=== PATIENT | male | born 1995 | race Two or more races ===

== ENCOUNTER 2017-01-14 18:15 | Emergency (ER) | payer OTHER ==
[~2017-01-14] VITALS: Ht 185.4 cm; Wt 107.9 kg
[2017-01-14] MEDS ORDERED: AUGM875T28 PO (20:23)
[2017-01-14] MEDS ORDERED: ADACEL/BOOSTRIX VACCINE (DIPHTH/PERTUSS/ACELL/TETANUS)0.5ML SYR (90715) IM ONE (20:30)
[2017-01-14] MEDS ORDERED: AUGMENTIN 875 MG TAB PO ONE (20:30)
[2017-01-14 20:31] VITALS: BP 136/93
== END 2017-01-14 20:39 | disposition home or self-care (01) ==
LOC: M ED 19:25
DX: S91.331A Puncture wound without foreign body, right foot, initial encounter (principal); X58.XXXA Exposure to other specified factors, initial encounter; Y92.009 Unspecified place in unspecified non-institutional (private) residence as the place of occurrence of the external cause; Y93.89 Activity, other specified; Y99.8 Other external cause status

== ENCOUNTER 2020-01-08 03:27 | Emergency (ER) | payer OTHER, SELFPAY ==
[~2020-01-08] VITALS: Ht 188 cm; Wt 106.8 kg
[~2020-01-08 03:27] MED LIST: AUGM875T28 PO
[2020-01-08] MEDS ORDERED: FLUORESCEIN OPHTH 1 MG STRIP As Ordered ONE (03:58)
[2020-01-08] MEDS ORDERED: FLUORESCEIN OPHTH 1 MG STRIP OD ONE (04:00)
[2020-01-08] MEDS ORDERED: TETRACAINE 0.5% OPHTH SOLN 4ML OD ONE (04:00)
[2020-01-08] MEDS ORDERED: CIPROFLOXACIN 0.3% OPHTH SOLN 2.5ML OU ONE (04:15)
[2020-01-08] MEDS ORDERED: CIPR0.3S6 OU (04:19)
[2020-01-08 04:23] VITALS: BP 125/86
== END 2020-01-08 04:42 | disposition home or self-care (01) ==
LOC: M ED 03:27
DX: H10.33 Unspecified acute conjunctivitis, bilateral (principal)

== ENCOUNTER 2021-04-19 16:58 | Emergency (ER) | payer SELFPAY ==
[~2021-04-19] VITALS: Ht 188 cm; Wt 104.5 kg
[~2021-04-19 16:58] MED LIST changes: +CIPR0.3S6 OU
[2021-04-19 16:59] VITALS: BP 146/95
== END 2021-04-19 19:15 | disposition left against medical advice (07) ==
LOC: M ED 16:58
DX: Z53.29 Procedure and treatment not carried out because of patient's decision for other reasons (principal)

== ENCOUNTER → 2024-03-26 | Outpatient (REF) | payer OTHER ==
[~2024-03-26] MED LIST changes: +CIPR0.3S37 OU; -CIPR0.3S6 OU
[2024-03-26 18:47] LABS: BASO % 0.6 % (0.0-1.0); EOS % 0.6 % (0.0-3.0); HEMATOCRIT 46.3 % (42.0-52.0); HEMOGLOBIN 15.5 g/dl (13.5-17.5); LYMPH # 1.7 10^3/uL (1.5-5.0); LYMPH % 26.7 % (24.0-44.0); MEAN CORPUSCULAR HEMOGLOBIN 28.8 pg (27.0-33.0); MEAN CORPUSCULAR HGB CONC 33.5 g/dl (32.0-36.5); MEAN CORPUSCULAR VOLUME 85.9 fl (80.0-96.0); MONO # 0.4 10^3/uL (0.0-0.8); MONO % 5.8 % (2.0-8.0); NEUTROPHILS # 4.3 10^3/uL (1.5-8.5); NEUTROPHILS % 66.1 % (36.0-66.0); PLATELET COUNT, AUTOMATED 246 10^3/uL (150-450); RED BLOOD COUNT 5.39 10^6/uL (4.30-6.10); WHITE BLOOD COUNT 6.5 10^3/uL (4.0-10.0)
[2024-03-26 18:59] LABS: HEMOGLOBIN A1c 5.2 % (4.0-6.0)
[2024-03-26 19:15] LABS: THYROID STIMULATING HORMONE 2.743 uIU/ML (0.55-4.78)
[2024-03-26 19:16] LABS: TOTAL 25(OH) VITAMIN D 27.9 NG/ML (20.0-100.0)
[2024-03-26 19:17] LABS: ALBUMIN 4.4 G/DL (3.2-5.2); ALKALINE PHOSPHATASE 97 U/L (46-116); ALT/SGPT 21 U/L (7.0-40); AST/SGOT 20 U/L (<34); BILIRUBIN,TOTAL 0.6 MG/DL (0.3-1.2); BLOOD UREA NITROGEN 15 MG/DL (9-23); CALCIUM LEVEL 9.7 MG/DL (8.5-10.1); CARBON DIOXIDE LEVEL 28 MMOL/L (20-31); CHLORIDE LEVEL 106 MMOL/L (98-107); CHOLESTEROL LEVEL 169 MG/DL (<200); CHOLESTEROL RISK RATIO 3.68 (<5); CREATININE FOR GFR 0.97 MG/DL (0.70-1.30); GLOMERULAR FILTRATION RATE > 60.0 (>60); GLUCOSE, FASTING 87 MG/DL (60-100); HDL CHOLESTEROL 45.9 MG/DL (>40); LDL CHOLESTEROL 105.3 MG/DL (<100); NON-HDL-C 123.1 MG/DL; POTASSIUM SERUM 4.1 MMOL/L (3.5-5.1); SODIUM LEVEL 142 MMOL/L (136-145); TOTAL PROTEIN 7.7 G/DL (5.7-8.2); TRIGLYCERIDES LEVEL 89 MG/DL (<150)
== END ==
LOC: M LAB REF 16:25
PROVIDERS: ATTEND Family Medicine Addiction Medicine
DX: E66.3 Overweight (principal); E55.9 Vitamin D deficiency, unspecified; Z11.9 Encounter for screening for infectious and parasitic diseases, unspecified; R53.83 Other fatigue

== ENCOUNTER → 2025-05-18 | Outpatient (REF) | payer OTHER | LOC: M LAB REF 12:24 | PROVIDERS: ATTEND Physician Assistant | DX: J06.9 Acute upper respiratory infection, unspecified (principal) ==